=== PATIENT | female | born 1965 | race Caucasian/White ===

== ENCOUNTER 2017-11-19 18:23 | Emergency (ER) | END 2017-11-19 20:53 | disposition home or self-care (01) ==

== ENCOUNTER 2018-07-24 14:07 | Emergency (ER) | payer BC, MEDICAID ==
[~2018-07-24] VITALS: Ht 170.2 cm; Wt 67.0 kg
[~2018-07-24 14:07] MED LIST: CYCL10TA7 PO; IBUP-1561 PO; LIDO700A29 TP
[2018-07-24 14:14] VITALS: Ht 170.2 cm; Wt 67.0 kg
[2018-07-24] MEDS ORDERED: IBUPROFEN 600 MG TAB PO ONE (16:30)
[2018-07-24] MEDS ORDERED: IBUP-1542 PO (16:50)
[2018-07-24] MEDS ORDERED: TRAM50TA2 PO (16:50)
--- NOTE | 2018-07-24 16:53 | ERD ---
ER Documentation Chief Complaint Chief Complaint RIGHT SHOULDER PAIN D/T FALL, DENIES HEAD STEFFANY HPI 52-year-old female presents with right shoulder pain after mechanical fall yesterday. She has difficulty raising her arm due to pain. She denies head injury, neck pain, bleeding or discharge. Denies any chest pain or shortness of breath. ROS All systems reviewed and are negative except as per history of present illness. Medications Home Meds Active Scripts Tramadol HCl (Tramadol HCl) 50 Mg Tablet, 50 MG PO Q4 PRN for PAIN, #15 TAB Prov:ANDREA ZHANG MD 07/24/18 Ibuprofen* (Motrin*) 600 Mg Tab, 600 MG PO Q6, #20 TAB Prov:ANDREA ZHANG MD 07/24/18 Lidocaine (Lidoderm) 1 Each Adh..patch, 1 EACH TP DAILY for 5 Days Prov:MAMI COX PA-C 11/19/17 Ibuprofen* (Motrin*) 400 Mg Tab, 400 MG PO Q6H PRN for PAIN AND OR ELEVATED TEMP, #30 TAB Prov:MAMI COX PA-C 11/19/17 Cyclobenzaprine Hcl* (Cyclobenzaprine Hcl*) 10 Mg Tablet, 10 MG PO TID, #15 TAB Prov:MAMI COX PA-C 11/19/17 Allergies Allergies: Coded Allergies: No Known Allergy (Unverified , 07/24/18) PMhx/Soc Medical and Surgical Hx: pt denies Medical Hx, pt denies Surgical Hx History of Surgery: No Anesthesia Reaction: No Hx Neurological Disorder: No Hx Respiratory Disorders: No Hx Cardiac Disorders: No Hx Psychiatric Problems: No Hx Miscellaneous Medical Probl: No Hx Alcohol Use: No Hx Substance Use: No Hx Tobacco Use: No Smoking Status: Never smoker FmHx Family History: No diabetes, No coronary disease, No other Physical Exam Vitals Vital Signs Date Temp Pulse Resp B/P (MAP) Pulse Ox O2 O2 Flow FiO2 Time Delivery Rate 07/24/18 97.7 78 18 133/72 98 14:14 (92) Physical Exam Const: No acute distress Head: Atraumatic Eyes: Normal Conjunctiva ENT: Normal External Ears, Nose and Mouth. Neck: Full range of motion. No meningismus. Resp: Clear to auscultation bilaterally Cardio: Regular rate and rhythm, no murmurs Abd: Soft, non tender, non distended. Normal bowel sounds Skin: No petechiae or rashes Back: No midline or flank tenderness Ext: No cyanosis, or edema or tenderness in the right rotator cuff capsule and proximal humerus. Limited range of motion possibly due to pain. No erythema, warmth. Neur: Awake and alert Psych: Normal Mood and Affect Results 24 hrs Current Medications Medications Dose Sig/[place] Start Time Status Last (Trade) Ordered Route PRN Stop Time Admin Dose Reason Admin Ibuprofen 600 mg ONCE ONCE 07/24/18 DC 07/24/18 (Motrin) PO 16:30 07/24/18 16:31 16:31 Procedures/MDM Patient is placed in a right arm sling. Patient is neurovascular intact after sling. X-ray right shoulder 3V Interpreted by me: Bones: No fracture Joints: No dislocation Foreign body: None impression-normal right shoulder x-ray Patient presents with right shoulder pain after mechanical fall yesterday. She may have rotator cuff injury. There is no evidence of fracture, dislocation, signs of significant head injury. She will discharged home with orthopedic and primary care follow-up. She will be given a short course of ibuprofen and tramadol for pain. The patient was stable with no new complaints during the ER course. Clinically, there is no current evidence to suggest meningitis, sepsis, acute abdomen, pneumonia, stroke, acute coronary syndrome, pulmonary embolism, aortic dissection or any other emergent condition appearing to require further evaluation or hospitalization. Patient counseled regarding my diagnostic impression and care plan. Prior to discharge all questions answered. Pt agrees with treatment plan and understands strict return precautions. Pt is instructed to follow up with primary care provider within 24-48 hours. Precautionary instructions provided including instructions to return to the ER if not improving or for any worsening or changing symptoms or concerns. Departure Diagnosis: Primary Impression: Sprain of shoulder, right Encounter type: initial encounter Shoulder sprain type: unspecified sprain Qualified Codes: S43.401A - Unspecified sprain of right shoulder joint, initial encounter Condition: Stable Patient Instructions: Shoulder Sprain Additional Instructions: X-ray normal. Examines normal hoy. Cheque otro vez con real doctor primario en el proximo [place] or regresa para mas o nueva simptomas. ANDREA ZHANG MD Jul 24, 2018 16:52
[2018-07-24 17:06] VITALS: BP 125/66; PULSE 65; RESP 18
== END 2018-07-24 17:08 | disposition home or self-care (01) ==
LOC: FTE 14:07
DX: S43.401A Unspecified sprain of right shoulder joint, initial encounter (principal); W18.39XA Other fall on same level, initial encounter
CPT/HCPCS: 73030; Z7502; Z7610; 99283